=== PATIENT | male | born 1955 | race Asian ===

== ENCOUNTER 2019-09-01 14:04 | Emergency (ER) | payer MEDICAID ==
[~2019-09-01] VITALS: Ht 175.3 cm; Wt 92.1 kg
--- NOTE | 2019-09-01 14:45 | NUR ---
PATIENT TO ER #2
[2019-09-01 14:47] VITALS: BP_SYST 143
[2019-09-01] MEDS ORDERED: METF-833 PO (14:47)
[2019-09-01] MEDS ORDERED: PIOG45TA PO (14:47)
[2019-09-01] MEDS ORDERED: LISI5TAB PO (14:47)
[2019-09-01] MEDS ORDERED: ASPI-524 PO (14:47)
--- NOTE | 2019-09-01 15:00 | NUR ---
UA OBTAINED, VOIDING W/OUT DIFFICULTY, ALERT, CALM, RESP UNLABORED
--- NOTE | 2019-09-01 15:10 | NUR ---
ALERT, CALM, RESP UNLABORED, SKIN WARM AND DRY. COMMUNICATES CLEARRLY IN FULL COMPLETE SENTENCES, NO DISTRESS.
[2019-09-01 15:25] LABS: BILIRUBIN,URINE NEGATIVE (NEGATIVE); BLOOD, URINE NEGATIVE (NEGATIVE); CLARITY/URINE CLEAR (CLEAR); COLOR,URINE YELLOW (YELLOW); GLUCOSE,URINE 3+ (NEGATIVE); KETONES,URINE NEGATIVE (NEGATIVE); LEUKOCYTE ESTERASE ,URINE NEGATIVE (NEGATIVE); NITRITE, URINE NEGATIVE (NEGATIVE); PROTEIN URINE NEGATIVE (NEGATIVE); UROBILINOGEN,URINE 0.2 (0.2-1.0)
--- NOTE | 2019-09-01 15:27 | NUR ---
Patient given written and verbal discharge instructions and verbalizes understanding. ER MD discussed with patient the results and treatment provided. Patient in stable condition. ID arm band removed. Rx of NORCO given. Patient educated on pain management and to follow up with PMD. Pain Scale 2/10. Opportunity for questions provided and answered. Medication side effect fact sheet provided.
[2019-09-01 15:42] VITALS: BP_SYST 143
== END 2019-09-01 15:42 | disposition home or self-care (01) ==
LOC: SED 14:04
DX: M54.5 Low back pain (principal); E11.9 Type 2 diabetes mellitus without complications; Z79.899 Other long term (current) drug therapy; Z79.82 Long term (current) use of aspirin
CPT/HCPCS: 81003; 82962; 99283